=== PATIENT | male | born 1995 | race African-American/Black ===

== ENCOUNTER 2022-10-03 13:36 | Inpatient (IN) | payer OTHER ==
[~2022-10-03] VITALS: Ht 182.9 cm; Wt 91.6 kg
[2022-10-03] MEDS ORDERED: HYDROCODONE/ACETAMINOPHEN 10/325MG TABLET PO ONE (15:00)
[2022-10-03] MEDS ORDERED: MORPHINE SULFATE 4 MG/ML CPJ (NOT FOR IM USE) IV ONE ×2 (15:15→18:15)
[2022-10-03] MEDS ORDERED: HYDR-4001 MT (16:32)
[2022-10-03] MEDS: MORPHINE SULFATE 4 MG/ML CPJ (NOT FOR IM USE) IV NR ×2 (16:57→21:49)
[2022-10-03] MEDS ORDERED: LIDOCAINE HCL/PF 1% 10 MG/ML 5ML VIAL INFIL ONE (17:45)
[2022-10-03] MEDS ORDERED: TETANUS AND DIPHTHERIA TOX/PF 0.5ML SYR (ADULT) IM ONE (17:45)
[2022-10-03] MEDS ORDERED: TETANUS, DIPHTHERIA, PERTUSSIS VAC/PF 0.5ML (>10YR OLD) IM ONE ×2 (18:15→21:30)
[2022-10-03] MEDS ORDERED: BACITRACIN ZINC OINT UDPKT TOP ONE (18:45)
[2022-10-03] MEDS ORDERED: CEFAZOLIN 1000MG PREMIX 50 ML IV ONE ×2 (18:45)
[2022-10-03] MEDS ORDERED: SODIUM CHLORIDE 0.9% 1,000 ML IV ONE (20:15)
[2022-10-03] MEDS ORDERED: MORPHINE SULFATE 2 MG/ML CPJ (NOT FOR IM USE) IV ONE (20:15)
[2022-10-03 20:49] LABS: CHLORIDE 103 mEq/L (98-107)
[2022-10-03 20:52] LABS: BASOPHILS % 0.2 % (0.0-2.0); HEMATOCRIT. 41.6 % (42.0-52.0); LYMPHOCYTES % 7.5 % (20.0-50.0); MEAN CORPUSCULAR HEMOGLOBIN 31.3 pg (28.0-32.0); MEAN CORPUSCULAR VOLUME 92.9 fL (80.0-94.0); MEAN PLATELET VOLUME 8.3 fl (7.4-10.4); NEUTROPHILS % 87.3 % (40.0-76.0); PLATELET 285 x1000/uL (130-400); RED BLOOD CELL COUNT 4.48 mill/uL (4.7-6.1); RED CELL DISTRIBUTION WIDTH 13.7 % (11.6-14.6)
[2022-10-03 20:57] LABS: INR 1.1; PROTHROMBIN TIME 11.4 sec (9.6-11.0)
[2022-10-03] MEDS ORDERED: CEFAZOLIN 2000MG in DEXTROSE 5% WATER 100ML IV NR (21:30)
[2022-10-03] MEDS ORDERED: POLYMYXIN B SULFATE 500000 UNITS/VIAL ONE ×2 (21:40→22:54)
[2022-10-03] MEDS ORDERED: BACITRACIN 15GM TUBE TOP ONE (21:41)
[2022-10-03] MEDS ORDERED: LIDOCAINE HCL 1% 20ML VIAL (Pyxis) INJ ONE (21:41)
[2022-10-03] MEDS ORDERED: BUPIVACAINE HCL/PF 0.5% (5MG/ML) 10ML ONE (21:41)
[2022-10-03] MEDS ORDERED: VANCOMYCIN HCL 1 GM/VIAL ONE (21:41)
[2022-10-03 21:49] LABS: CLARITY URINE CLEAR (CLEAR); COLOR URINE YELLOW (YELLOW); KETONES URINE 1+ (NEGATIVE); LEUKOCYTE ESTERASE URINE NEGATIVE (NEGATIVE); NITRITE URINE NEGATIVE (NEGATIVE); OCCULT BLOOD URINE NEGATIVE (NEGATIVE); PROTEIN URINE NEGATIVE (NEGATIVE); SPECIFIC GRAVITY URINE 1.019 (1.005-1.030); UROBILINOGEN URINE 0.2 E.U./dL (0.2-1.0)
[2022-10-03] MEDS: MORPHINE SULFATE 4 MG/ML CPJ (NOT FOR IM USE) IV PRN (21:49)
[2022-10-03] MEDS ORDERED: KETOROLAC 30MG/ML VIAL ONE (21:59)
[2022-10-03] MEDS ORDERED: LIDOCAINE HCL 1% 10 MG/ML 10ML VIAL ONE (21:59)
[2022-10-03] MEDS ORDERED: CEFAZOLIN SODIUM 1000MG/VIAL ONE (21:59)
[2022-10-03] MEDS ORDERED: METOCLOPRAMIDE HCL 10MG/2ML VIAL ONE (21:59)
[2022-10-03] MEDS ORDERED: ONDANSETRON HCL 4MG/2ML INJ ONE (21:59)
[2022-10-03] MEDS ORDERED: DEXAMETHASONE 4MG/ML 1ML VIAL ONE (21:59)
[2022-10-03] MEDS ORDERED: PROPOFOL 200MG/20ML VIAL IV ONE (22:00)
[2022-10-03] MEDS ORDERED: ROCURONIUM BROMIDE 10MG/ML VIAL 5ML IV ONE (22:00)
[2022-10-03] MEDS ORDERED: FENTANYL CITRATE/PF 50MCG/ML 2ML VIAL ONE (22:01)
[2022-10-03] MEDS ORDERED: MIDAZOLAM HCL 2 MG/2 ML VIAL ONE (22:01)
[2022-10-03] MEDS ORDERED: CLINDAMYCIN 900 MG PREMIX 50 ML IV ONE (22:23)
[2022-10-03] MEDS ORDERED: HYDROMORPHONE HCL/PF 2MG/ML CPJ ONE (22:47)
[2022-10-03] MEDS ORDERED: CEFAZOLIN 2000 MG IV ONE (23:59)
[2022-10-04] MEDS ORDERED: ONDANSETRON HCL 4MG/2ML INJ IV PRN (00:45)
[2022-10-04] MEDS ORDERED: NALOXONE HCL 0.4MG/ML VIAL IV PRN (01:00)
[2022-10-04] MEDS: MORPHINE SULFATE 4 MG/ML CPJ (NOT FOR IM USE) IV PRN (03:05)
[2022-10-04 03:20] VITALS: BP 128/62
[2022-10-04] MEDS ORDERED: CEFAZOLIN 1000MG PREMIX 50 ML IV SCH (06:00)
[2022-10-04] MEDS: HYDROCODONE/ACETAMINOPHEN 5/325MG TABLET PO PRN ×3 (07:08→18:50)
[2022-10-04 08:00] VITALS: BP 116/65
[2022-10-04] MEDS: ENOXAPARIN 40MG/0.4ML SYR SUBCUT SCH (09:26)
[2022-10-04 09:30] LABS: HEMATOCRIT. 36.8 % (42.0-52.0); HEMOGLOBIN. 12.2 g/dL (14.0-18.0); MEAN CORPUSCULAR HEMOGLOBIN 30.9 pg (28.0-32.0); MEAN CORPUSCULAR VOLUME 93.1 fL (80.0-94.0); MEAN PLATELET VOLUME 8.7 fl (7.4-10.4); PLATELET 233 x1000/uL (130-400); RED BLOOD CELL COUNT 3.95 mill/uL (4.7-6.1); RED CELL DISTRIBUTION WIDTH 13.5 % (11.6-14.6)
[2022-10-04] MEDS: HYDROMORPHONE HCL/PF 2MG/ML CPJ IV PRN ×2 (09:46→22:04)
[2022-10-04 12:00] VITALS: BP 127/64
[2022-10-04 12:47] LABS: PLATELET ESTIMATE NORMAL
[2022-10-04] MEDS: CEFAZOLIN 1000MG PREMIX 50 ML IV SCH ×2 (14:11→21:06)
[2022-10-04 16:00] VITALS: BP 124/59
[2022-10-04 20:00] VITALS: BP 115/62
[2022-10-05] VITALS: BP 120/65
[2022-10-05] MEDS: HYDROCODONE/ACETAMINOPHEN 5/325MG TABLET PO PRN ×3 (02:02→12:08)
[2022-10-05 04:00] VITALS: BP 112/67
[2022-10-05] MEDS: CEFAZOLIN 1000MG PREMIX 50 ML IV SCH (06:30)
[2022-10-05] MEDS: HYDROMORPHONE HCL/PF 2MG/ML CPJ IV PRN (06:31)
[2022-10-05 07:43] LABS: BASOPHILS % 0.4 % (0.0-2.0); EOSINOPHILS % 0.2 % (0.0-5.0); HEMATOCRIT. 34.1 % (42.0-52.0); HEMOGLOBIN. 11.7 g/dL (14.0-18.0); MEAN CORPUSCULAR VOLUME 93.2 fL (80.0-94.0); MEAN PLATELET VOLUME 9.1 fl (7.4-10.4); MONOCYTES % 9.6 % (2.0-8.0); NEUTROPHILS % 72.8 % (40.0-76.0); PLATELET 187 x1000/uL (130-400); RED BLOOD CELL COUNT 3.66 mill/uL (4.7-6.1); RED CELL DISTRIBUTION WIDTH 13.5 % (11.6-14.6)
[2022-10-05 08:00] VITALS: BP 119/75
[2022-10-05] MEDS: ENOXAPARIN 40MG/0.4ML SYR SUBCUT SCH (08:32)
[2022-10-05] MEDS: MORPHINE SULFATE 4 MG/ML CPJ (NOT FOR IM USE) IV PRN (08:47)
[2022-10-05] MEDS ORDERED: HYDR-4001 MT (11:07)
[2022-10-05 12:00] VITALS: BP 123/72
[2022-10-05 12:08] VITALS: BP 119/75
[2022-10-05] MEDS ORDERED: IBUPROFEN 600MG TABLET PO PRN (12:15)
== END 2022-10-05 14:13 | disposition home or self-care (01) | DRG 512 ==
LOC: ER 13:36 → 6EST 20:20 → EDBEDREQTM 20:23 → EDBEDREQ 20:23
PROVIDERS: ADMIT Internal Medicine; ATTEND Internal Medicine
PROC: 0PSJ04Z Reposition Left Radius with Internal Fixation Device, Open Approach (ICD-10-PCS; principal; 2022-10-04)
PROC: 0PSL04Z Reposition Left Ulna with Internal Fixation Device, Open Approach (ICD-10-PCS; 2022-10-04)
DX: S52.202C Unspecified fracture of shaft of left ulna, initial encounter for open fracture type IIIA, IIIB, or IIIC (principal); S52.302A Unspecified fracture of shaft of left radius, initial encounter for closed fracture; Z20.822 Contact with and (suspected) exposure to COVID-19; W01.0XXA Fall on same level from slipping, tripping and stumbling without subsequent striking against object, initial encounter; Y93.01 Activity, walking, marching and hiking; Y92.39 Other specified sports and athletic area as the place of occurrence of the external cause; Y99.8 Other external cause status
CPT/HCPCS: 36415; 73070; 73090; 73110; 76000; 80053; 81003; 85025; 87426; 90714; 90715; 97162; 97166; 99285; A4565; C9803; J0690; J1100; J1170; J1650; J1885; J2250; J2270; J2405; J2704; J2765; J3010; J3370; J3490; J7030; J7060; Q4051; C1713